=== PATIENT | male | born 1995 | race Caucasian/White ===

== ENCOUNTER 2017-01-23 21:46 | Emergency (ER) | payer SELFPAY ==
[~2017-01-23] VITALS: Ht 180.3 cm; Wt 77.1 kg
--- NOTE | 2017-01-23 21:46 | NUR ---
Patient to [facility] for evaluation. Side rails up. Report given to FAUSTINA MCKEON.
--- NOTE | 2017-01-23 21:46 | NUR ---
Note [email or web address] in EDM - 01/23/17 at 2244 by [email or web address] Patient given written and verbal discharge instructions and verbalizes understanding. ER MD Navarro discussed with patient the results and treatment provided. Patient in stable condition. ID arm band removed. Patient educated on pain management and to follow up with PMD. Pain Scale 0/10. Opportunity for questions provided and answered.
[2017-01-23 21:55] VITALS: BP 128/79; PULSE 89; RESP 16; TEMP 99; O2SAT 96
--- NOTE | 2017-01-23 22:00 | NUR ---
[facility]. placed [facility], assumed pt. care
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
--- NOTE | 2017-01-23 22:10 | NUR ---
Dr. Navarro at chairside examining the pt.
[2017-01-23 22:18] VITALS: BP 128/79; PULSE 89; RESP 16; TEMP 99; O2SAT 96
--- NOTE | 2017-01-23 22:20 | NUR ---
Patient given written and verbal discharge instructions and verbalizes understanding. ER MD GALAN discussed with patient the results and treatment provided. Patient in stable condition. ID arm band removed. NO Rx given. Patient educated on pain management and to follow up with PMD. Pain Scale 0/10. Opportunity for questions provided and answered.
== END 2017-01-23 22:18 ==
LOC: SED 21:46
DX: Z04.3 Encounter for examination and observation following other accident (principal); V89.2XXA Person injured in unspecified motor-vehicle accident, traffic, initial encounter; Y93.89 Activity, other specified; Y99.8 Other external cause status; Y92.89 Other specified places as the place of occurrence of the external cause
CPT/HCPCS: 99283